=== PATIENT | male | born 1955 | race Caucasian/White ===

== ENCOUNTER 2017-10-21 09:05 | Emergency (ER) | payer BC ==
[~2017-10-21] VITALS: Ht 182.9 cm; Wt 108.5 kg
[~2017-10-21 09:05] MED LIST: ASPIRIN325 MG PO; ENDOCET 5-3251 EACH PO; LISINOPRIL5 MG PO; NORCO 7.5/321 TABLET PO; PROTONIX40 MG PO; TYLENOL PM1 CAPLET PO; ZOFRAN4 MG PO
[2017-10-21 10:35] LABS: BASOPHIL (%) 0.5 % (0-1); BASOPHIL COUNT 0.1 K/uL (0-0.1); EOSINOPHIL (%) 2.6 % (0-5); EOSINOPHIL COUNT 0.4 K/uL (0-0.3); HEMATOCRIT 44.3 % (38.0-50.0); HEMOGLOBIN 15.6 G/DL (12.5-16.6); IMMATURE GRANULOCYTE (%) 0.9 % (0.0-0.7); LYMPHOCYTE (%) 10.9 % (15-42); LYMPHOCYTE COUNT 1.7 K/uL (1.0-2.8); MCH 29.1 PG (29.0-34.0); MCHC 35.2 G/DL (30.0-36.0); MCV 82.6 FL (86-99); MONOCYTE (%) 6.7 % (3-12); NEUTROPHIL (%) 78.4 % (45-76); NEUTROPHIL COUNT 11.9 K/uL (1.8-6.4); PLATELET COUNT 269 K/uL (156-360); RBC DIS.WIDTH-CV 12.9 % (11.8-14.6); RBC DIS.WIDTH-SD 38.7 % (39-53); RED BLOOD COUNT 5.36 M/uL (4.00-5.50); WHITE BLOOD COUNT 15.2 K/uL (4.1-10.2)
[2017-10-21 10:43] LABS: ALBUMIN 4.1 g/dL (3.2-4.8)
[2017-10-21 10:44] LABS: CHLORIDE 106 mEq/L (99-109); SODIUM 136 mEq/L (136-147)
[2017-10-21 10:46] LABS: GLUCOSE 136 mg/dL (70-99); TOTAL PROTEIN 8.1 g/dL (6.4-8.3)
[2017-10-21 10:48] LABS: TOTAL BILIRUBIN 0.9 mg/dL (0.0-1.0)
[2017-10-21 10:49] LABS: ALKALINE PHOSPHATASE 128 IU/L (3-129)
[2017-10-21 10:50] LABS: CREATININE 0.8 mg/dL (0.6-1.3); GFR ESTIMATE (CALCULATED) > 59 mL/min/ (58.99-99999)
[2017-10-21 10:51] LABS: AST (GOT) 15 IU/L (2-34); UREA NITROGEN (BUN) 15 mg/dL (9-23)
[2017-10-21 10:52] LABS: ALT (GPT) 21 IU/L (3-49)
[2017-10-21 10:53] LABS: ACETAMINOPHEN (TYLENOL) < 10 mcg/mL (10-30)
[2017-10-21 10:58] LABS: APPEARANCE TURBID ((CLEAR)); BILIRUBIN SMALL; BLOOD NEGATIVE; COLOR YELLOW ((YELLOW)); GLUCOSE (STRIP) NEGATIVE; KETONES NEGATIVE; LEUKOCYTES SMALL; NITRITE NEGATIVE; PROTEIN (STRIP) 30; SPECIFIC GRAVITY 1.036 (1.000-1.030)
[2017-10-21 11:20] LABS: RED BLOOD CELLS 0-5 /HPF (0-5); WHITE BLOOD CELLS 15-20 /HPF (0-5)
[2017-10-21 11:21] LABS: AMORPHOUS PHOSPHATE CRYSTALS 3+; BACTERIA 1+ /HPF; COARSE GRANULAR CASTS 0-5 /LPF; EPITHELIAL CELLS NONE SEEN /HPF; MUCUS NONE SEEN /LPF
[2017-10-21 11:35] LABS: SALICYLATE < 3.0 MG/DL (15-30)
[2017-10-21 12:14] LABS: ERTH.SED.RATE 88 MM/HR (0-20)
[2017-10-21] MEDS ORDERED: NORCO 10/3251 TABLET PO (13:12)
[2017-10-21] MEDS ORDERED: CIPRO500 MG PO (13:12)
[2017-10-21 13:26] LABS: SOURCE URINE
[2017-10-21 13:55] VITALS: BP 147/88
[2017-10-23 12:40] LABS: CHLAMYDIA TRACHOMATIS POSITIVE; NEISSERIA GONORRHOEAE NEGATIVE
== END 2017-10-21 13:55 | disposition home or self-care (01) ==
LOC: EME 09:05
PROVIDERS: Emergency Medicine
DX: N45.3 Epididymo-orchitis (principal); N39.0 Urinary tract infection, site not specified; I10 Essential (primary) hypertension; Z90.49 Acquired absence of other specified parts of digestive tract; Z79.82 Long term (current) use of aspirin
CPT/HCPCS: 74176; 76870; 80053; 81003; 85025; 85651; 87086; 87491; 87591; 99281; 99284; G0480; J0696